=== PATIENT | male | born 1960 | race Caucasian/White ===

== ENCOUNTER 2018-11-10 19:24 | Emergency (ER) | payer BC ==
[~2018-11-10] VITALS: Ht 180.3 cm; Wt 124.0 kg
[~2018-11-10 19:24] MED LIST: ALFU10TA PO; BACL20TA PO; CLON1TAB11 PO; GABA-827 PO; IBUP-1223 PO; MORP30TA PO; OXYC-432 PO; OXYC20TA42 PO
--- NOTE | 2018-11-10 20:25 | NUR ---
PT AMBULATED TO BR WITHOUT DIFFICULTY. INSTRUCTED ON CLEAN CATCH URINE SAMPLE.
--- NOTE | 2018-11-10 20:58 | NUR ---
ERP WAS IN TO SEE PT.
--- NOTE | 2018-11-10 21:09 | NUR ---
PT UP TO BR TO TRY TO VOID AGAIN.
[2018-11-10 21:42] LABS: CULTURE INDICATED? YES; MICROSCOPIC INDICATED
[2018-11-10 21:52] VITALS: BP 137/92
[2018-11-10] MEDS ORDERED: ACETAMINOPHEN 500 MG TABLET ONE (21:58)
[2018-11-10] MEDS ORDERED: ACETAMINOPHEN 500 MG TABLET PO ONE (22:00)
[2018-11-10] MEDS ORDERED: ACETAMINOPHEN 325 MG TABLET PO ONE (22:00)
--- NOTE | 2018-11-10 22:03 | NUR ---
PT C/O HEADACHE. ERP NOTIFIED, MEDICATED WITH TYLENOL. D/C INSTRUCTIONS, MEDS, & F/U APPT RV'WD WITH PT, HE VERBALIZES UNDERSTANDING. RX GIVEN X2. PT AMBULATED OUT OF ED WITH CANE WITHOUT DIFFICULTY.
== END 2018-11-10 22:09 | disposition home or self-care (01) ==
LOC: ED 22:00
DX: N45.1 Epididymitis (principal); N50.3 Cyst of epididymis; N43.3 Hydrocele, unspecified
CPT/HCPCS: 76870; 81001; 87086; 99284

== ENCOUNTER 2020-09-11 23:18 | Inpatient (IN) | payer BC ==
[~2020-09-11] VITALS: Ht 177.8 cm; Wt 134.0 kg
[~2020-09-11 23:18] MED LIST changes: -OXYC-432 PO; +OXYC1TAB18 PO
--- NOTE | 2020-09-11 23:25 | NUR ---
Pt arrives from an urgent, reports they told him he had pneumonia and needs to go to ED. Pt reports someone he lives with got sick and now everyone in the house has had "this bad cold". Pt reports he thinks he has asthma and feels like he has COPD but no diagnosis. Former smoker over 30yrs ago. Reports he lives where [place] very [place], [place] and there are animals in the house that he is allergic to that he thinks makes it so its difficult for him to breath at times. Pt wears CPAP at night but no oxygen at home.
[2020-09-12] MEDS ORDERED: ALBUTEROL/IPRATROPIUM 2.5MG/0.5MG, 3 ML NPPB PRN
[2020-09-12] MEDS ORDERED: ALBUTEROL/IPRATROPIUM 2.5MG/0.5MG, 3 ML ONE ×2 (00:34→03:02)
[2020-09-12 00:40] LABS: BASOPHILS % (AUTO) 0 % (0-1); EOSINOPHILS % (AUTO) 0 % (1-7); LYMPHOCYTES % (AUTO) 6 % (22-44); MEAN CORPUSCULAR HEMOGLOBIN 31.4 pg (27.5-34.5); MEAN PLATELET VOLUME 8.4 fL (7.4-10.4); MONOCYTES % (AUTO) 2 % (2-9); NEUTROPHILS % (AUTO) 92 % (42-75); PLATELET COUNT 198 x10^3/uL (130-400); RED BLOOD COUNT 4.87 x10^6/uL (4.38-5.82); RED CELL DISTRIBUTION WIDTH 14.1 % (9.4-14.8)
[2020-09-12 00:41] LABS: MD NO
--- NOTE | 2020-09-12 00:41 | NUR ---
Medicated per [facility].
[2020-09-12 00:48] LABS: ALBUMIN 3.7 g/dL (3.4-5.0); ANION GAP 7 mmol/L (5-15); CALCIUM 8.6 mg/dL (8.5-10.1); CHLORIDE 108 mmol/L (98-107); CREATININE 0.92 mg/dL (0.7-1.3)
--- NOTE | 2020-09-12 01:46 | NUR ---
Pt satting 88% on 4L nasal cannula, switched to oxymask- 93% on 6L. Informed provider.
--- NOTE | 2020-09-12 01:49 | NUR ---
Provider at bedside.
--- NOTE | 2020-09-12 02:16 | NUR ---
GODFREY swabbed and walked to lab.
--- NOTE | 2020-09-12 02:20 | NUR ---
Note elvi in EDM - 09/12/20 at 0309 by KANIKA Pt resting in [facility], reports she is comfortable right now, denying pain meds, warm blankets on and pillow placed under affected right leg. Right pedal pulse still +2, right leg presenting with shortening and externally rotated, unchanged since arrival.
[2020-09-12] MEDS ORDERED: AZITHROMYCIN 500 MG in SODIUM CHLORIDE 0.9% 250 ML IVPB ONE (02:30)
[2020-09-12] MEDS ORDERED: CEFTRIAXONE PMX 1GM/50ML 50 ML IVPB ONE (02:30)
--- NOTE | 2020-09-12 02:45 | NUR ---
Rocephin started per eMAR.
[2020-09-12] MEDS ORDERED: CEFTRIAXONE PMX 1GM/50ML 50 ML ONE (02:54)
[2020-09-12 04:00] VITALS: BP 121/86
[2020-09-12] MEDS ORDERED: MORPHINE SULFATE 30 MG PO SCH (04:00)
[2020-09-12] MEDS ORDERED: MORPHINE 30 MG MC SCH (04:00)
[2020-09-12] MEDS ORDERED: ONDANSETRON 2MG/ML, 2ML IVPush PRN (04:00)
[2020-09-12] MEDS ORDERED: hydrALAzine 20 MG/ML, 1ML IVPush PRN (04:00)
[2020-09-12] MEDS ORDERED: ACETAMINOPHEN 325 MG TABLET PO PRN (04:00)
[2020-09-12] MEDS ORDERED: MORP20CA17 PO (04:13)
[2020-09-12] MEDS ORDERED: ALBUTEROL HFA 90 MCG/SPRAY INH PRN (04:30)
[2020-09-12 04:45] LABS: HCT (SEDRATE) 42.1 % (39.2-51.8)
[2020-09-12] MEDS: AZITHROMYCIN 500 MG in SODIUM CHLORIDE 0.9% 250 ML IV SCH (05:26)
[2020-09-12] MEDS: BENZONATATE 100 MG CAPSULE PO PRN ×3 (05:31→22:53)
[2020-09-12] MEDS: ENOXAPARIN 30 MG/0.3 ML SQ SCH ×2 (05:32→17:19)
[2020-09-12] MEDS: GABAPENTIN 400 MG CAPSULE PO SCH ×3 (05:32→21:01)
[2020-09-12] MEDS ORDERED: GABAPENTIN 400 MG CAPSULE PO SCH (06:00)
[2020-09-12 06:10] LABS: RAPID INFLUENZA A Negative (Negative); RAPID INFLUENZA B Negative (Negative)
[2020-09-12] MEDS ORDERED: ALFUZOSIN HCL 10 MG PO SCH (07:30)
[2020-09-12 07:50] VITALS: BP 123/78
[2020-09-12] MEDS ORDERED: DEXAMETHASONE 4 MG/ML, 1ML IVPush SCH (09:00)
[2020-09-12] MEDS ORDERED: BACLOFEN 10 MG TABLET PO SCH (09:00)
[2020-09-12] MEDS: OXYcodone/APAP 10/325MG TABLET PO SCH ×3 (09:05→21:01)
[2020-09-12 12:13] VITALS: BP 128/73
[2020-09-12] MEDS: methylPREDNISolone SOD SUCC 125 MG/2 ML IVPush SCH (17:18)
[2020-09-12 19:08] VITALS: BP 132/75
[2020-09-12] MEDS: INSULIN LISPRO 100 UNITS/ML, PEN SQ-INSULIN SCH (21:00)
[2020-09-13] MEDS: methylPREDNISolone SOD SUCC 125 MG/2 ML IVPush SCH ×3 (00:05→16:13)
[2020-09-13 02:12] VITALS: BP 131/76
[2020-09-13] MEDS: CEFTRIAXONE PMX 1GM/50ML 50 ML IV SCH (02:16)
[2020-09-13] MEDS: MELATONIN 5 MG TABLET PO PRN ×2 (02:44→22:31)
[2020-09-13] MEDS: GABAPENTIN 400 MG CAPSULE PO SCH ×3 (04:53→20:29)
[2020-09-13] MEDS: AZITHROMYCIN 500 MG in SODIUM CHLORIDE 0.9% 250 ML IV SCH (04:53)
[2020-09-13] MEDS: ENOXAPARIN 30 MG/0.3 ML SQ SCH ×2 (04:54→16:13)
[2020-09-13 07:36] VITALS: BP 137/76
[2020-09-13] MEDS: INSULIN LISPRO 100 UNITS/ML, PEN SQ-INSULIN SCH ×4 (07:36→20:29)
[2020-09-13] MEDS: OXYcodone/APAP 10/325MG TABLET PO SCH ×3 (08:53→20:29)
[2020-09-13 10:49] LABS: BASOPHILS % (AUTO) 0 % (0-1); EOSINOPHILS % (AUTO) 0 % (1-7); LYMPHOCYTES % (AUTO) 8 % (22-44); MEAN CORPUSCULAR HEMOGLOBIN 30.8 pg (27.5-34.5); MEAN CORPUSCULAR HGB CONC 32.6 g/dL (33.2-36.2); MEAN PLATELET VOLUME 8.5 fL (7.4-10.4); MONOCYTES % (AUTO) 4 % (2-9); NEUTROPHILS % (AUTO) 88 % (42-75); PLATELET COUNT 228 x10^3/uL (130-400); RED BLOOD COUNT 4.64 x10^6/uL (4.38-5.82); RED CELL DISTRIBUTION WIDTH 14.3 % (9.4-14.8)
[2020-09-13 10:59] LABS: ANION GAP 4 mmol/L (5-15); CALCIUM 8.7 mg/dL (8.5-10.1); CHLORIDE 103 mmol/L (98-107); CREATININE 0.86 mg/dL (0.7-1.3)
[2020-09-13 11:26] LABS: MD SCAN
[2020-09-13 15:00] VITALS: BP 116/73
[2020-09-13 19:50] VITALS: BP 144/79
[2020-09-14] MEDS: methylPREDNISolone SOD SUCC 125 MG/2 ML IVPush SCH ×2 (00:25→09:12)
[2020-09-14 02:10] VITALS: BP 116/68
[2020-09-14] MEDS: CEFTRIAXONE PMX 1GM/50ML 50 ML IV SCH (02:17)
[2020-09-14] MEDS: ENOXAPARIN 30 MG/0.3 ML SQ SCH ×2 (04:28→16:23)
[2020-09-14] MEDS: GABAPENTIN 400 MG CAPSULE PO SCH ×3 (04:28→20:42)
[2020-09-14] MEDS: AZITHROMYCIN 500 MG in SODIUM CHLORIDE 0.9% 250 ML IV SCH (04:28)
[2020-09-14] MEDS: INSULIN LISPRO 100 UNITS/ML, PEN SQ-INSULIN SCH ×4 (07:13→21:19)
[2020-09-14 07:45] VITALS: BP 137/83
[2020-09-14] MEDS: OXYcodone/APAP 10/325MG TABLET PO SCH ×3 (09:12→20:42)
[2020-09-14 13:15] VITALS: BP 130/84
[2020-09-14 13:18] VITALS: BP 130/84
[2020-09-14 18:32] VITALS: BP 149/82
[2020-09-14] MEDS: methylPREDNISolone SOD SUCC 40 MG/ML IVPush SCH (20:42)
[2020-09-15] MEDS: MELATONIN 5 MG TABLET PO PRN (00:05)
[2020-09-15 00:49] VITALS: BP 144/72
[2020-09-15] MEDS: CEFTRIAXONE PMX 1GM/50ML 50 ML IV SCH (01:54)
[2020-09-15] MEDS: GABAPENTIN 400 MG CAPSULE PO SCH ×2 (05:18→13:16)
[2020-09-15] MEDS: ENOXAPARIN 30 MG/0.3 ML SQ SCH (05:18)
[2020-09-15] MEDS: AZITHROMYCIN 500 MG in SODIUM CHLORIDE 0.9% 250 ML IV SCH (05:20)
[2020-09-15 05:24] LABS: BASOPHILS % (AUTO) 0 % (0-1); EOSINOPHILS % (AUTO) 0 % (1-7); LYMPHOCYTES % (AUTO) 12 % (22-44); MEAN CORPUSCULAR HGB CONC 33.3 g/dL (33.2-36.2); MEAN PLATELET VOLUME 8.8 fL (7.4-10.4); MONOCYTES % (AUTO) 5 % (2-9); NEUTROPHILS % (AUTO) 83 % (42-75); PLATELET COUNT 196 x10^3/uL (130-400); RED BLOOD COUNT 4.49 x10^6/uL (4.38-5.82); RED CELL DISTRIBUTION WIDTH 13.8 % (9.4-14.8)
[2020-09-15 05:33] LABS: ANION GAP 4 mmol/L (5-15); CALCIUM 8.3 mg/dL (8.5-10.1); CHLORIDE 104 mmol/L (98-107); CREATININE 0.76 mg/dL (0.7-1.3)
[2020-09-15 06:08] LABS: MD SCAN
[2020-09-15] MEDS: INSULIN LISPRO 100 UNITS/ML, PEN SQ-INSULIN SCH ×2 (07:36→11:03)
[2020-09-15 07:59] VITALS: BP 129/68
[2020-09-15] MEDS: methylPREDNISolone SOD SUCC 40 MG/ML IVPush SCH (08:58)
[2020-09-15] MEDS: OXYcodone/APAP 10/325MG TABLET PO SCH (08:59)
[2020-09-15] MEDS ORDERED: AZIT500T10 PO (11:42)
[2020-09-15] MEDS ORDERED: CEFD300C37 PO (11:42)
[2020-09-15] MEDS ORDERED: PRED20TA PO (11:42)
[2020-09-15 12:37] VITALS: BP 162/97
== END 2020-09-15 16:10 | disposition home or self-care (01) | DRG 193 ==
LOC: ED 09-12 00:08 → EDIP 09-12 02:12 → 3N 09-12 03:48 → DCLOUNGE 09-15 16:02
PROVIDERS: ADMIT Family Medicine; ATTEND Internal Medicine
PROC: 5A09357 Assistance with Respiratory Ventilation, Less than 24 Consecutive Hours, Continuous Positive Airway Pressure (ICD-10-PCS; principal; 2020-09-15)
DX: J18.9 Pneumonia, unspecified organism (principal); J96.21 Acute and chronic respiratory failure with hypoxia; F11.20 Opioid dependence, uncomplicated; J44.0 Chronic obstructive pulmonary disease with (acute) lower respiratory infection; J44.1 Chronic obstructive pulmonary disease with (acute) exacerbation; Z68.41 Body mass index [BMI] 40.0-44.9, adult; E66.01 Morbid (severe) obesity due to excess calories; G47.33 Obstructive sleep apnea (adult) (pediatric); Z20.822 Contact with and (suspected) exposure to COVID-19; E11.9 Type 2 diabetes mellitus without complications; G89.29 Other chronic pain; T38.0X5A Adverse effect of glucocorticoids and synthetic analogues, initial encounter; Z87.891 Personal history of nicotine dependence; Y92.89 Other specified places as the place of occurrence of the external cause
CPT/HCPCS: 36415; 80048; 82040; 82962; 83036; 83615; 84145; 85025; 85379; 85651; 87040; 87400; 93005; 96374; 96375; 99285; G0378; J0456; J0696; J1100; J1650; J1815; J2920; J2930; J7050; J7512; U0003